=== PATIENT | male | born 1940 | race Caucasian/White ===

== ENCOUNTER 2017-03-22 16:29 | Inpatient (IN) ==
[2017-03-22 17:21] LABS: Basophils % 0.5 % (0.0-0.8); Eosinophils % 0.1 % (0.00-10.9); Hematocrit 43.2 VOL% (42.0-52.0); Immature Granulocytes % 0.5 %; Immature Granulocytes Absolute 0.04 #; Lymphocytes # 1.1 10*3/uL (1.4-4.0); Mean Corpuscular HGB Conc 32.4 GM/DL (32-36); Mean Corpuscular Hemoglobin 30 PG (27-34); Mean Corpuscular Volume 90.9 FL (87-102); Monocytes # 0.6 10*3/uL (0.11-0.8); Monocytes % 6.5 % (1.7-12.7); Neutrophils # 7.1 10*3/uL (1.4-7.4); Neutrophils % 80.4 % (38.7-73.9); Platelet Count 236 T/CUMM (130-400); Red Blood Count 4.75 MC/CUMM (3.8-5.5); Red Cell Distribution Width 13.2 % (9.3-17.3); White Blood Count 8.8 T/CUMM (4-12)
[2017-03-22 17:24] LABS: Apearance,Urine CLEAR (Clear); Bilirubin,Urine Negative (Negative); Blood, Urine Small mg/dL (Negative); Glucose,Urine (UA) Negative (Negative); Hyaline Casts,Urine 4 /LPF (0-3); Ketones,Urine Negative (Negative); Mucus,Urine Moderate /LPF (Occasional); Nitrite,Urine Negative (Negative); Protein,Urine Negative; RBC,Urine 1 /HPF (0-4); Urine Color Yellow (Yellow); Urine Specific Gravity 1.011 (1.001-1.035); WBC,Urine <1 /HPF (0-6)
[2017-03-22] MEDS ORDERED: SODIUM CHLORIDE 0.9% 500 ML IV STA (17:24)
[2017-03-22 17:33] LABS: Alanine Aminotransferase 14 U/L (16-61); Albumin 3.8 G/DL (3.4-5.0); Alkaline Phosphatase 108 U/L (45-117); Aspartate Amino Transferase 15 U/L (0-37); Blood Urea Nitrogen 15 MG/DL (7-18); Calcium 8.5 MG/DL (8.5-10.1); Glucose 110 MG/DL (74-106); Magnesium 2.2 MG/DL (1.8-2.4); Osmolality,Calculated 274.8 MOS/KG (273-304); Potassium 3.7 MMOL/L (3.5-5.1); Sodium 137 MMOL/L (136-145); Total Protein 7.5 G/DL (6.4-8.3); Troponin I Only < 0.015 NG/ML (0.00-0.045)
[2017-03-22 18:06] LABS: INR 1.3
[2017-03-22 18:14] LABS: Ammonia < 10 UMOL/L (11-32)
[2017-03-22 18:16] LABS: Barbiturates Screen,Urine Negative (Negative); Benzodiazepines Screen,Urine Negative (Negative); Cannabinoid Screen,Urine Negative (Negative); Opiate Screen,Urine Negative (Negative); Phencyclidine Screen,Urine Negative (Negative)
[2017-03-22 18:18] LABS: Lactic Acid 1.4 MMOL/L (0.4-2.0)
[2017-03-22] MEDS ORDERED: cefTRIAXone 1,000 MG in SODIUM CHLORIDE 0.9% 100 ML IV STA (18:56)
[2017-03-22] MEDS ORDERED: cefTRIAXone 1,000 MG VIAL ONE (21:14)
[2017-03-22] MEDS ORDERED: ONDANSETRON 4 MG/2 ML VIAL IV PRN (21:29)
[2017-03-22] MEDS ORDERED: ENOXAPARIN 40 MG/0.4 ML SYRINGE SUBCUT SCH (21:29)
[2017-03-23 00:17] LABS: ABG Base Excess 2.1 MMOL/L (-2.5-2.5); ABG HCO3 26.2 MMOL/L (20-26); ABG Oxygen Saturation 94.8 % (95-100); ABG PCO2 43.4 MM HG (35-48); ABG PH 7.405 (7.35-7.45); ABG PO2 73.5 MM HG (80-95)
[2017-03-23 00:21] LABS: Ammonia 28 UMOL/L (11-32)
[2017-03-23] MEDS ORDERED: ENOXAPARIN 80 MG/0.8 ML SYRINGE SUBCUT ONE (00:30)
[2017-03-23] MEDS: AZITHROMYCIN INJ 500 MG in SODIUM CHLORIDE 0.9% 250 ML IV SCH (02:09)
[2017-03-23] MEDS: SODIUM CHLORIDE 0.9% 1,000 ML IV SCH ×3 (02:10→17:03)
[2017-03-23 06:12] LABS: Risk Ratio 2.87; VLDL CHOLESTEROL 13.8 MG/DL
[2017-03-23] MEDS ORDERED: ENOXAPARIN 120 MG/0.8 ML SYRINGE SUBCUT SCH (09:00)
[2017-03-23] MEDS: PANTOPRAZOLE 40 MG TABLET PO SCH (09:04)
[2017-03-23] MEDS: cefTRIAXone 1,000 MG in SYRINGE 1 EACH IV SCH (21:34)
[2017-03-23] MEDS: APIXABAN 5 MG TABLET PO SCH (21:34)
[2017-03-24] MEDS: SODIUM CHLORIDE 0.9% 1,000 ML IV SCH (00:04)
[2017-03-24] MEDS: AZITHROMYCIN INJ 500 MG in SODIUM CHLORIDE 0.9% 250 ML IV SCH (00:05)
[2017-03-24 03:48] LABS: Basophils # 0.1 10*3/uL (0.0-0.2); Eosinophils # 0.2 10*3/uL (0.0-0.87); Eosinophils % 3.8 % (0.00-10.9); Hematocrit 36.5 VOL% (42.0-52.0); Hemoglobin 11.6 GM/DL (14.0-18.0); Immature Granulocytes % 0.2 %; Immature Granulocytes Absolute 0.01 #; Lymphocytes # 1.9 10*3/uL (1.4-4.0); Mean Corpuscular HGB Conc 31.8 GM/DL (32-36); Mean Corpuscular Hemoglobin 29 PG (27-34); Mean Corpuscular Volume 92.6 FL (87-102); Mean Platelet Volume 10.2 FL (9.6-12.0); Monocytes # 0.6 10*3/uL (0.11-0.8); Monocytes % 10.5 % (1.7-12.7); Neutrophils # 3.1 10*3/uL (1.4-7.4); Neutrophils % 52.5 % (38.7-73.9); Platelet Count 204 T/CUMM (130-400); Red Blood Count 3.94 MC/CUMM (3.8-5.5); Red Cell Distribution Width 13.3 % (9.3-17.3); White Blood Count 5.8 T/CUMM (4-12)
[2017-03-24 04:19] LABS: Calcium 7.7 MG/DL (8.5-10.1); Osmolality,Calculated 282.1 MOS/KG (273-304); Potassium 3.8 MMOL/L (3.5-5.1)
[2017-03-24] MEDS: APIXABAN 5 MG TABLET PO SCH ×2 (09:25→20:39)
[2017-03-24] MEDS: PANTOPRAZOLE 40 MG TABLET PO SCH (09:25)
[2017-03-24] MEDS ORDERED: TUBERCULIN SKIN TEST 0.1 ML SYRINGE INTRADERM ONE (15:20)
[2017-03-24] MEDS: CYANOCOBALAMIN 500 MCG TABLET PO SCH (15:56)
[2017-03-24] MEDS: FINASTERIDE 5 MG TABLET PO SCH (15:56)
[2017-03-24] MEDS: SIMVASTATIN 40 MG TABLET PO SCH (20:39)
[2017-03-24] MEDS: cefTRIAXone 1,000 MG in SYRINGE 1 EACH IV SCH (20:39)
[2017-03-25] MEDS: AZITHROMYCIN INJ 500 MG in SODIUM CHLORIDE 0.9% 250 ML IV SCH ×2 (00:06→23:35)
[2017-03-25 05:47] LABS: Basophils # 0.1 10*3/uL (0.0-0.2); Basophils % 0.9 % (0.0-0.8); Eosinophils # 0.3 10*3/uL (0.0-0.87); Eosinophils % 3.9 % (0.00-10.9); Hematocrit 40.6 VOL% (42.0-52.0); Hemoglobin 12.7 GM/DL (14.0-18.0); Immature Granulocytes % 0.2 %; Immature Granulocytes Absolute 0.01 #; Lymphocytes # 1.4 10*3/uL (1.4-4.0); Lymphocytes % 22.1 % (21.2-54.2); Mean Corpuscular HGB Conc 31.3 GM/DL (32-36); Mean Corpuscular Hemoglobin 29 PG (27-34); Mean Corpuscular Volume 91.2 FL (87-102); Mean Platelet Volume 10.2 FL (9.6-12.0); Monocytes # 0.6 10*3/uL (0.11-0.8); Monocytes % 9.7 % (1.7-12.7); Neutrophils % 63.2 % (38.7-73.9); Platelet Count 226 T/CUMM (130-400); Red Blood Count 4.45 MC/CUMM (3.8-5.5); Red Cell Distribution Width 13.3 % (9.3-17.3); White Blood Count 6.4 T/CUMM (4-12)
[2017-03-25] MEDS: APIXABAN 5 MG TABLET PO SCH ×2 (09:01→20:40)
[2017-03-25] MEDS: CYANOCOBALAMIN 500 MCG TABLET PO SCH (09:01)
[2017-03-25] MEDS: PANTOPRAZOLE 40 MG TABLET PO SCH (09:01)
[2017-03-25] MEDS: FINASTERIDE 5 MG TABLET PO SCH (09:01)
[2017-03-25] MEDS: TAMSULOSIN 0.4 MG CAPSULE PO SCH (09:01)
[2017-03-25] MEDS ORDERED: ZINC OXIDE PASTE 113 GM TUBE TOP PRN (14:13)
[2017-03-25] MEDS: ACETAMINOPHEN 325 MG TABLET PO PRN ×2 (14:23→20:40)
[2017-03-25] MEDS: cefTRIAXone 1,000 MG in SYRINGE 1 EACH IV SCH (20:39)
[2017-03-25] MEDS: SIMVASTATIN 40 MG TABLET PO SCH (20:40)
[2017-03-26 05:37] LABS: Basophils % 0.7 % (0.0-0.8); Eosinophils # 0.1 10*3/uL (0.0-0.87); Eosinophils % 1.1 % (0.00-10.9); Hematocrit 37.8 VOL% (42.0-52.0); Hemoglobin 12.6 GM/DL (14.0-18.0); Immature Granulocytes % 0.4 %; Immature Granulocytes Absolute 0.02 #; Lymphocytes # 1.1 10*3/uL (1.4-4.0); Lymphocytes % 20.9 % (21.2-54.2); Mean Corpuscular HGB Conc 33.3 GM/DL (32-36); Mean Corpuscular Hemoglobin 30 PG (27-34); Mean Corpuscular Volume 88.9 FL (87-102); Mean Platelet Volume 9.6 FL (9.6-12.0); Monocytes # 0.9 10*3/uL (0.11-0.8); Monocytes % 16.8 % (1.7-12.7); Neutrophils # 3.2 10*3/uL (1.4-7.4); Neutrophils % 60.1 % (38.7-73.9); Platelet Count 197 T/CUMM (130-400); Red Blood Count 4.25 MC/CUMM (3.8-5.5); Red Cell Distribution Width 13.5 % (9.3-17.3); White Blood Count 5.4 T/CUMM (4-12)
[2017-03-26 06:46] LABS: Band Neutrophils 8 % (0-10); Eosinophils 2 % (0-10); Lymphocytes 25 % (20-55); Myelocytes 2 %; Segmented Neutrophils 58 % (50-85); Total Cells Counted 100
[2017-03-26 06:47] LABS: Anisocytosis 1+; Hypochromasia 1+; Platelet Estimate Adequate
[2017-03-26] MEDS: TAMSULOSIN 0.4 MG CAPSULE PO SCH (09:06)
[2017-03-26] MEDS: CYANOCOBALAMIN 500 MCG TABLET PO SCH (09:06)
[2017-03-26] MEDS: PANTOPRAZOLE 40 MG TABLET PO SCH (09:06)
[2017-03-26] MEDS: FINASTERIDE 5 MG TABLET PO SCH (09:06)
[2017-03-26] MEDS: APIXABAN 5 MG TABLET PO SCH ×2 (09:06→21:43)
[2017-03-26] MEDS: cefTRIAXone 1,000 MG in SYRINGE 1 EACH IV SCH (21:42)
[2017-03-26] MEDS: SIMVASTATIN 40 MG TABLET PO SCH (21:43)
[2017-03-27] MEDS: AZITHROMYCIN INJ 500 MG in SODIUM CHLORIDE 0.9% 250 ML IV SCH (00:56)
[2017-03-27] MEDS: PANTOPRAZOLE 40 MG TABLET PO SCH (10:32)
[2017-03-27] MEDS: CYANOCOBALAMIN 500 MCG TABLET PO SCH (10:32)
[2017-03-27] MEDS: TAMSULOSIN 0.4 MG CAPSULE PO SCH (10:32)
[2017-03-27] MEDS: FINASTERIDE 5 MG TABLET PO SCH (10:32)
[2017-03-27] MEDS: APIXABAN 5 MG TABLET PO SCH ×2 (10:33→23:42)
[2017-03-27] MEDS: cefTRIAXone 1,000 MG in SYRINGE 1 EACH IV SCH (23:42)
[2017-03-27] MEDS: SIMVASTATIN 40 MG TABLET PO SCH (23:42)
[2017-03-28] MEDS: AZITHROMYCIN INJ 500 MG in SODIUM CHLORIDE 0.9% 250 ML IV SCH (01:27)
[2017-03-28 06:46] LABS: Basophils % 0.4 % (0.0-0.8); Eosinophils # 0.1 10*3/uL (0.0-0.87); Eosinophils % 2.4 % (0.00-10.9); Hematocrit 37.4 VOL% (42.0-52.0); Hemoglobin 12.1 GM/DL (14.0-18.0); Immature Granulocytes % 0.2 %; Immature Granulocytes Absolute 0.01 #; Lymphocytes # 1.3 10*3/uL (1.4-4.0); Lymphocytes % 26.1 % (21.2-54.2); Mean Corpuscular HGB Conc 32.4 GM/DL (32-36); Mean Corpuscular Hemoglobin 30 PG (27-34); Mean Corpuscular Volume 91.2 FL (87-102); Mean Platelet Volume 10.2 FL (9.6-12.0); Monocytes # 0.9 10*3/uL (0.11-0.8); Monocytes % 17.8 % (1.7-12.7); Neutrophils # 2.7 10*3/uL (1.4-7.4); Neutrophils % 53.1 % (38.7-73.9); Platelet Count 201 T/CUMM (130-400); Red Cell Distribution Width 13.6 % (9.3-17.3)
[2017-03-28 07:14] LABS: Calcium 7.7 MG/DL (8.5-10.1); Eosinophils 1 % (0-10); Lymphocytes 30 % (20-55); Magnesium 2.3 MG/DL (1.8-2.4); Osmolality,Calculated 276.7 MOS/KG (273-304); Segmented Neutrophils 52 % (50-85); Total Cells Counted 100
[2017-03-28 07:15] LABS: Hypochromasia Slight; Platelet Estimate Adequate; Target Cells Slight
[2017-03-28] MEDS: TAMSULOSIN 0.4 MG CAPSULE PO SCH (08:39)
[2017-03-28] MEDS: FINASTERIDE 5 MG TABLET PO SCH (08:40)
[2017-03-28] MEDS: PANTOPRAZOLE 40 MG TABLET PO SCH (08:40)
[2017-03-28] MEDS: APIXABAN 5 MG TABLET PO SCH ×2 (08:40→22:33)
[2017-03-28] MEDS: CYANOCOBALAMIN 500 MCG TABLET PO SCH (08:40)
[2017-03-28] MEDS ORDERED: ALBUTEROL/IPRATROPIUM 3 ML NEB RESP TX PRN (21:45)
[2017-03-28] MEDS: cefTRIAXone 1,000 MG in SYRINGE 1 EACH IV SCH (22:33)
[2017-03-28] MEDS: SIMVASTATIN 40 MG TABLET PO SCH (22:33)
[2017-03-28] MEDS: ALBUTEROL/IPRATROPIUM 3 ML NEB RESP TX SCH (23:57)
[2017-03-29] MEDS: AZITHROMYCIN INJ 500 MG in SODIUM CHLORIDE 0.9% 250 ML IV SCH
[2017-03-29] MEDS: ALBUTEROL/IPRATROPIUM 3 ML NEB RESP TX SCH ×3 (04:19→11:21)
[2017-03-29] MEDS: FINASTERIDE 5 MG TABLET PO SCH (09:18)
[2017-03-29] MEDS: PANTOPRAZOLE 40 MG TABLET PO SCH (09:18)
[2017-03-29] MEDS: TAMSULOSIN 0.4 MG CAPSULE PO SCH (09:18)
[2017-03-29] MEDS: APIXABAN 5 MG TABLET PO SCH (09:18)
[2017-03-29] MEDS: CYANOCOBALAMIN 500 MCG TABLET PO SCH (09:18)
[2017-03-29 11:18] VITALS: BP 106/63
== END 2017-03-29 13:41 | DRG 193 ==
LOC: EDUNIT# → EDBD → N.ED 16:29 → SUATTDRO 19:52 → N.EDINP 19:52 → N.TELEN 20:52 → N.5E 03-26 17:56
PROVIDERS: ADMIT Internal Medicine; ATTEND Internal Medicine

== ENCOUNTER 2021-08-25 17:22 | Inpatient (IN) ==
[2021-08-25] MEDS ORDERED: methylPREDNISolone SOD SUC 125 MG/2 ML VIAL IV STA (18:29)
[2021-08-25] MEDS ORDERED: FUROSEMIDE 100 MG/10 ML VIAL IV STA (18:29)
[2021-08-25] MEDS ORDERED: ONDANSETRON 4 MG/2 ML VIAL IV STA (18:29)
[2021-08-25 18:32] LABS: Basophils % 0.4 % (0.0-0.8); Eosinophils # 0.1 10*3/uL (0.0-0.87); Eosinophils % 0.8 % (0.00-10.9); Hematocrit 39.2 VOL% (42.0-52.0); Hemoglobin 12.5 GM/DL (14.0-18.0); Immature Granulocytes % 0.5 %; Immature Granulocytes Absolute 0.05 #; Lymphocytes # 1.3 10*3/uL (1.4-4.0); Lymphocytes % 13.3 % (21.2-54.2); Mean Corpuscular HGB Conc 31.9 GM/DL (32-36); Mean Corpuscular Volume 88.7 FL (87-102); Mean Platelet Volume 8.5 FL (9.6-12.0); Monocytes % 10.5 % (1.7-12.7); Neutrophils % 74.5 % (38.7-73.9); Platelet Count 269 T/CUMM (130-400); Red Blood Count 4.42 MC/CUMM (3.8-5.5); Red Cell Distribution Width 13.6 % (9.3-17.3)
[2021-08-25 18:44] LABS: PT Patient Result 11.3 SECS (10.5-12.0); Partial Thromboplastin Time 27.6 SECS (23.8-32.1)
[2021-08-25 18:55] LABS: Albumin 2.8 G/DL (3.4-5.0); Bilirubin,Total 0.4 MG/DL (0.20-1.00); Calcium 8.4 MG/DL (8.5-10.1); Osmolality,Calculated 257.1 MOS/KG (273-304); Potassium 3.9 MMOL/L (3.5-5.1); Total Protein 6.5 G/DL (6.4-8.2)
[2021-08-25] MEDS ORDERED: ALBUTEROL NEB SOLN 5 MG/ML 20 ML/BOTTLE CONT NEB SCH (19:00)
[2021-08-25] MEDS ORDERED: PIPERACILLIN/TAZOBACTAM 3,375 MG in SODIUM CHLORIDE 0.9% 100 ML IV STA (19:10)
[2021-08-25] MEDS ORDERED: GLUCAGON 1 MG VIAL IM PRN (20:06)
[2021-08-25] MEDS ORDERED: ACETAMINOPHEN 325 MG TABLET PO PRN (20:06)
[2021-08-25] MEDS ORDERED: ONDANSETRON 4 MG/2 ML VIAL IV PRN (20:06)
[2021-08-25] MEDS ORDERED: MORPHINE 2 MG/1 ML SYRINGE IV PRN (20:06)
[2021-08-25] MEDS ORDERED: DEXTROSE 10% 250 ML BAG IV PRN (20:19)
[2021-08-25] MEDS ORDERED: SODIUM CHLORIDE 0.9% 500 ML IV STA (20:53)
[2021-08-25] MEDS ORDERED: AZITHROMYCIN INJ 500 MG in SODIUM CHLORIDE 0.9% 250 ML IV SCH (21:00)
[2021-08-25] MEDS ORDERED: SODIUM CHLORIDE 0.9% 1,000 ML IV STA (21:47)
[2021-08-25 23:09] LABS: Arterial Base Excess iSTAT 5 MMOL/L (-2.5-2.5); Arterial Bicarbonate iSTAT 32.3 MMOL/L (20-26); Arterial O2 Saturation iSTAT 96 % (95-100); Arterial PCO2 iSTAT 58 MM HG (35-48); Arterial PO2 iSTAT 91 MM HG (80-95); Arterial Total CO2 iSTAT 34 MMO/L (23-27); Arterial pH iSTAT 7.353 (7.35-7.45)
[2021-08-25] MEDS ORDERED: ALBUTEROL/IPRATROPIUM 3 ML NEB RESP TX ONE ×2 (23:17→23:57)
[2021-08-26] MEDS: ALBUTEROL/IPRATROPIUM 3 ML NEB RESP TX SCH ×4 (00:45→19:06)
[2021-08-26] MEDS: VANCOMYCIN INJ 1,500 MG in SODIUM CHLORIDE 0.9% 500 ML IV SCH ×2 (03:58→22:49)
[2021-08-26 04:41] LABS: Calcium 8.1 MG/DL (8.5-10.1); Osmolality,Calculated 259.2 MOS/KG (273-304); Potassium 3.5 MMOL/L (3.5-5.1)
[2021-08-26 05:08] LABS: Basophils % 0.1 % (0.0-0.8); Hematocrit 37.5 VOL% (42.0-52.0); Immature Granulocytes % 0.8 %; Immature Granulocytes Absolute 0.09 #; Lymphocytes # 0.3 10*3/uL (1.4-4.0); Lymphocytes % 2.9 % (21.2-54.2); Mean Corpuscular Volume 89.9 FL (87-102); Mean Platelet Volume 8.9 FL (9.6-12.0); Monocytes # 0.1 10*3/uL (0.11-0.8); Monocytes % 0.9 % (1.7-12.7); Neutrophils % 95.3 % (38.7-73.9); Platelet Count 290 T/CUMM (130-400); Red Blood Count 4.17 MC/CUMM (3.8-5.5); Red Cell Distribution Width 13.7 % (9.3-17.3); White Blood Count 11.8 T/CUMM (4-12)
[2021-08-26 05:27] LABS: Hypochromia 1+; Lymphocytes 7 % (20-55); Microcytosis Slight; Total Cells Counted 100
[2021-08-26 05:28] LABS: Ovalocytes Slight; Platelet Estimate Normal
[2021-08-26] MEDS: PIPERACILLIN/TAZOBACTAM 3,375 MG in SODIUM CHLORIDE 0.9% 100 ML IV SCH ×2 (07:10→18:04)
[2021-08-26 08:37] LABS: Arterial Base Excess iSTAT 6 MMOL/L (-2.5-2.5); Arterial Bicarbonate iSTAT 33.3 MMOL/L (20-26); Arterial O2 Saturation iSTAT 80 % (95-100); Arterial PCO2 iSTAT 58 MM HG (35-48); Arterial PO2 iSTAT 48 MM HG (80-95); Arterial Total CO2 iSTAT 35 MMO/L (23-27); Arterial pH iSTAT 7.366 (7.35-7.45)
[2021-08-26 08:56] LABS: Arterial Base Excess iSTAT 7 MMOL/L (-2.5-2.5); Arterial Bicarbonate iSTAT 34.9 MMOL/L (20-26); Arterial O2 Saturation iSTAT 97 % (95-100); Arterial PCO2 iSTAT 66 MM HG (35-48); Arterial PO2 iSTAT 106 MM HG (80-95); Arterial Total CO2 iSTAT 37 MMO/L (23-27); Arterial pH iSTAT 7.328 (7.35-7.45)
[2021-08-26] MEDS ORDERED: predniSONE 10 MG TABLET PO SCH (09:00)
[2021-08-26] MEDS: PANTOPRAZOLE 40 MG TABLET PO SCH (09:55)
[2021-08-26] MEDS: CYANOCOBALAMIN 500 MCG TABLET PO SCH (09:55)
[2021-08-26] MEDS: FAMOTIDINE 20 MG TABLET PO SCH (09:56)
[2021-08-26] MEDS: APIXABAN 2.5 MG TABLET PO SCH ×2 (09:56→22:50)
[2021-08-26] MEDS: busPIRone 5 MG TABLET PO SCH ×2 (09:56→22:50)
[2021-08-26] MEDS: DIVALPROEX SPRINKLE 125 MG CAPSULE PO SCH ×2 (09:57→22:50)
[2021-08-26] MEDS: CALCIUM (CARBONATE)/VITAMIN D 600 MG-400 UNIT TABLET PO SCH (09:57)
[2021-08-26] MEDS: SERTRALINE 25 MG TABLET PO SCH (09:58)
[2021-08-26] MEDS: CETIRIZINE 10 MG TABLET PO SCH (09:58)
[2021-08-26] MEDS: methylPREDNISolone SOD SUC 40 MG/1 ML VIAL IV SCH ×2 (10:03→18:08)
[2021-08-26] MEDS: SODIUM CHLORIDE 0.9% 1,000 ML IV SCH (10:44)
[2021-08-26] MEDS: SIMVASTATIN 40 MG TABLET PO SCH (22:50)
[2021-08-27] MEDS: ALBUTEROL/IPRATROPIUM 3 ML NEB RESP TX SCH ×4 (00:07→19:40)
[2021-08-27] MEDS: PIPERACILLIN/TAZOBACTAM 3,375 MG in SODIUM CHLORIDE 0.9% 100 ML IV SCH ×4 (01:20→22:06)
[2021-08-27] MEDS: methylPREDNISolone SOD SUC 40 MG/1 ML VIAL IV SCH ×3 (02:50→18:42)
[2021-08-27 07:52] LABS: Basophils % 0.1 % (0.0-0.8); Hematocrit 39.7 VOL% (42.0-52.0); Hemoglobin 12.4 GM/DL (14.0-18.0); Immature Granulocytes % 0.6 %; Immature Granulocytes Absolute 0.09 #; Lymphocytes # 0.8 10*3/uL (1.4-4.0); Lymphocytes % 5.3 % (21.2-54.2); Mean Corpuscular HGB Conc 31.2 GM/DL (32-36); Mean Corpuscular Volume 91.9 FL (87-102); Mean Platelet Volume 8.7 FL (9.6-12.0); Monocytes # 0.6 10*3/uL (0.11-0.8); Monocytes % 4.1 % (1.7-12.7); Neutrophils % 89.9 % (38.7-73.9); Platelet Count 249 T/CUMM (130-400); Red Blood Count 4.32 MC/CUMM (3.8-5.5); Red Cell Distribution Width 13.3 % (9.3-17.3); White Blood Count 14.5 T/CUMM (4-12)
[2021-08-27 08:09] LABS: Calcium 8.5 MG/DL (8.5-10.1); Osmolality,Calculated 261.8 MOS/KG (273-304); Potassium 3.9 MMOL/L (3.5-5.1)
[2021-08-27] MEDS: CETIRIZINE 10 MG TABLET PO SCH (09:58)
[2021-08-27] MEDS: APIXABAN 2.5 MG TABLET PO SCH ×2 (09:58→22:06)
[2021-08-27] MEDS: SERTRALINE 25 MG TABLET PO SCH (09:58)
[2021-08-27] MEDS: FAMOTIDINE 20 MG TABLET PO SCH (09:58)
[2021-08-27] MEDS: DIVALPROEX SPRINKLE 125 MG CAPSULE PO SCH ×2 (09:58→22:06)
[2021-08-27] MEDS: PANTOPRAZOLE 40 MG TABLET PO SCH (09:58)
[2021-08-27] MEDS: CALCIUM (CARBONATE)/VITAMIN D 600 MG-400 UNIT TABLET PO SCH (09:58)
[2021-08-27] MEDS: busPIRone 5 MG TABLET PO SCH ×2 (09:58→22:06)
[2021-08-27] MEDS: CYANOCOBALAMIN 500 MCG TABLET PO SCH (09:58)
[2021-08-27] MEDS: SODIUM CHLORIDE 0.9% 1,000 ML IV SCH (15:42)
[2021-08-27] MEDS: SIMVASTATIN 40 MG TABLET PO SCH (22:06)
[2021-08-28] MEDS: ALBUTEROL/IPRATROPIUM 3 ML NEB RESP TX SCH ×4 (01:00→19:09)
[2021-08-28] MEDS: methylPREDNISolone SOD SUC 40 MG/1 ML VIAL IV SCH ×3 (01:18→18:56)
[2021-08-28 05:40] LABS: Basophils % 0.1 % (0.0-0.8); Hematocrit 41.5 VOL% (42.0-52.0); Immature Granulocytes % 0.6 %; Immature Granulocytes Absolute 0.09 #; Lymphocytes # 0.5 10*3/uL (1.4-4.0); Lymphocytes % 3.4 % (21.2-54.2); Mean Corpuscular HGB Conc 31.3 GM/DL (32-36); Monocytes # 0.6 10*3/uL (0.11-0.8); Monocytes % 4.4 % (1.7-12.7); Neutrophils % 91.5 % (38.7-73.9); Platelet Count 255 T/CUMM (130-400); Red Blood Count 4.51 MC/CUMM (3.8-5.5); Red Cell Distribution Width 13.3 % (9.3-17.3); White Blood Count 14.6 T/CUMM (4-12)
[2021-08-28 05:55] LABS: Calcium 8.8 MG/DL (8.5-10.1); Osmolality,Calculated 260.9 MOS/KG (273-304); Potassium 3.7 MMOL/L (3.5-5.1)
[2021-08-28 06:10] LABS: Lymphocytes 2 % (20-55); Platelet Estimate Normal; Total Cells Counted 100
[2021-08-28] MEDS: PIPERACILLIN/TAZOBACTAM 3,375 MG in SODIUM CHLORIDE 0.9% 100 ML IV SCH ×3 (06:25→22:07)
[2021-08-28] MEDS: APIXABAN 2.5 MG TABLET PO SCH ×2 (10:37→22:06)
[2021-08-28] MEDS: CALCIUM (CARBONATE)/VITAMIN D 600 MG-400 UNIT TABLET PO SCH (10:37)
[2021-08-28] MEDS: FAMOTIDINE 20 MG TABLET PO SCH (10:37)
[2021-08-28] MEDS: CETIRIZINE 10 MG TABLET PO SCH (10:38)
[2021-08-28] MEDS: CYANOCOBALAMIN 500 MCG TABLET PO SCH (10:38)
[2021-08-28] MEDS: busPIRone 5 MG TABLET PO SCH ×2 (10:38→22:07)
[2021-08-28] MEDS: DIVALPROEX SPRINKLE 125 MG CAPSULE PO SCH ×2 (10:39→22:06)
[2021-08-28] MEDS: PANTOPRAZOLE 40 MG TABLET PO SCH (10:39)
[2021-08-28] MEDS: SERTRALINE 25 MG TABLET PO SCH (10:39)
[2021-08-28] MEDS: SIMVASTATIN 40 MG TABLET PO SCH (22:07)
[2021-08-29] MEDS: ALBUTEROL/IPRATROPIUM 3 ML NEB RESP TX SCH ×4 (01:15→19:15)
[2021-08-29] MEDS: methylPREDNISolone SOD SUC 40 MG/1 ML VIAL IV SCH ×3 (02:35→21:20)
[2021-08-29 05:19] LABS: Basophils % 0.1 % (0.0-0.8); Hemoglobin 13.9 GM/DL (14.0-18.0); Immature Granulocytes % 0.9 %; Immature Granulocytes Absolute 0.11 #; Lymphocytes # 0.6 10*3/uL (1.4-4.0); Lymphocytes % 4.8 % (21.2-54.2); Mean Corpuscular HGB Conc 31.6 GM/DL (32-36); Mean Corpuscular Volume 91.1 FL (87-102); Mean Platelet Volume 8.6 FL (9.6-12.0); Monocytes # 0.8 10*3/uL (0.11-0.8); Monocytes % 5.8 % (1.7-12.7); Neutrophils % 88.4 % (38.7-73.9); Platelet Count 264 T/CUMM (130-400); Red Blood Count 4.83 MC/CUMM (3.8-5.5); Red Cell Distribution Width 13.5 % (9.3-17.3); White Blood Count 12.9 T/CUMM (4-12)
[2021-08-29 05:37] LABS: Calcium 9.2 MG/DL (8.5-10.1); Osmolality,Calculated 263.8 MOS/KG (273-304); Potassium 3.7 MMOL/L (3.5-5.1)
[2021-08-29 05:45] LABS: Lymphocytes 6 % (20-55); Total Cells Counted 100
[2021-08-29 05:46] LABS: Platelet Estimate Normal
[2021-08-29] MEDS: SODIUM CHLORIDE 0.9% 1,000 ML IV SCH (07:26)
[2021-08-29] MEDS: PIPERACILLIN/TAZOBACTAM 3,375 MG in SODIUM CHLORIDE 0.9% 100 ML IV SCH ×3 (07:50→23:40)
[2021-08-29] MEDS: DIVALPROEX SPRINKLE 125 MG CAPSULE PO SCH ×2 (10:12→21:18)
[2021-08-29] MEDS: CALCIUM (CARBONATE)/VITAMIN D 600 MG-400 UNIT TABLET PO SCH (10:12)
[2021-08-29] MEDS: PANTOPRAZOLE 40 MG TABLET PO SCH (10:12)
[2021-08-29] MEDS: CYANOCOBALAMIN 500 MCG TABLET PO SCH (10:12)
[2021-08-29] MEDS: APIXABAN 2.5 MG TABLET PO SCH ×2 (10:12→21:18)
[2021-08-29] MEDS: busPIRone 5 MG TABLET PO SCH ×2 (10:12→21:17)
[2021-08-29] MEDS: CETIRIZINE 10 MG TABLET PO SCH (10:12)
[2021-08-29] MEDS: FAMOTIDINE 20 MG TABLET PO SCH (10:13)
[2021-08-29] MEDS: SERTRALINE 25 MG TABLET PO SCH (10:13)
[2021-08-29] MEDS: SIMVASTATIN 40 MG TABLET PO SCH (21:17)
[2021-08-30] MEDS: PIPERACILLIN/TAZOBACTAM 3,375 MG in SODIUM CHLORIDE 0.9% 100 ML IV SCH (06:07)
[2021-08-30 06:56] LABS: Hematocrit 42.2 VOL% (42.0-52.0); Immature Granulocytes % 0.4 %; Immature Granulocytes Absolute 0.04 #; Lymphocytes # 0.6 10*3/uL (1.4-4.0); Lymphocytes % 5.6 % (21.2-54.2); Mean Corpuscular HGB Conc 30.8 GM/DL (32-36); Mean Corpuscular Volume 92.5 FL (87-102); Mean Platelet Volume 8.7 FL (9.6-12.0); Monocytes # 0.7 10*3/uL (0.11-0.8); Monocytes % 6.5 % (1.7-12.7); Neutrophils % 87.5 % (38.7-73.9); Platelet Count 253 T/CUMM (130-400); Red Blood Count 4.56 MC/CUMM (3.8-5.5); Red Cell Distribution Width 13.8 % (9.3-17.3); White Blood Count 11.4 T/CUMM (4-12)
[2021-08-30] MEDS: ALBUTEROL/IPRATROPIUM 3 ML NEB RESP TX SCH (07:10)
[2021-08-30 07:21] LABS: Calcium 8.9 MG/DL (8.5-10.1); Osmolality,Calculated 264.8 MOS/KG (273-304); Potassium 4.1 MMOL/L (3.5-5.1)
[2021-08-30 07:43] LABS: Arterial Base Excess iSTAT 14 MMOL/L (-2.5-2.5); Arterial Bicarbonate iSTAT 42.8 MMOL/L (20-26); Arterial O2 Saturation iSTAT 98 % (95-100); Arterial PCO2 iSTAT 67 MM HG (35-48); Arterial PO2 iSTAT 106 MM HG (80-95); Arterial Total CO2 iSTAT 45 MMO/L (23-27); Arterial pH iSTAT 7.415 (7.35-7.45)
[2021-08-30] MEDS: methylPREDNISolone SOD SUC 40 MG/1 ML VIAL IV SCH (09:05)
[2021-08-30] MEDS: SERTRALINE 25 MG TABLET PO SCH (09:06)
[2021-08-30] MEDS: CETIRIZINE 10 MG TABLET PO SCH (09:06)
[2021-08-30] MEDS: DIVALPROEX SPRINKLE 125 MG CAPSULE PO SCH (09:06)
[2021-08-30] MEDS: CYANOCOBALAMIN 500 MCG TABLET PO SCH (09:07)
[2021-08-30] MEDS: PANTOPRAZOLE 40 MG TABLET PO SCH (09:07)
[2021-08-30] MEDS: FAMOTIDINE 20 MG TABLET PO SCH (09:07)
[2021-08-30] MEDS: CALCIUM (CARBONATE)/VITAMIN D 600 MG-400 UNIT TABLET PO SCH (09:07)
[2021-08-30] MEDS: busPIRone 5 MG TABLET PO SCH (09:07)
[2021-08-30] MEDS: APIXABAN 2.5 MG TABLET PO SCH (09:07)
[2021-08-30 12:21] VITALS: BP 129/70
== END 2021-08-30 13:50 | DRG 196 ==
LOC: EDUNIT# → EDBD → N.ED 17:22 → SUATTDRO 20:06 → N.EDINP 20:06 → N.TELES 08-26 00:01
PROVIDERS: ADMIT Internal Medicine; ATTEND Hospitalist